=== PATIENT | male | born 1935 | race Caucasian/White ===

== ENCOUNTER 2021-05-14 11:26 | Inpatient (IN) | payer OTHER, MEDICARE ==
[~2021-05-14] VITALS: Ht 170.2 cm; Wt 83.6 kg
[2021-05-14 11:27] VITALS: BP 119/66
[2021-05-14 12:03] LABS: ABSOLUTE NEUTROPHILS 4.1 thou/uL (1.4-8.2); BASOPHILS 0.4 % (0.0-2.0); HEMATOCRIT 33.5 % (42.0-52.0); HEMOGLOBIN 10.9 gm/dL (14.0-18.0); LYMPHOCYTES 11.9 % (24.0-44.0); MCH 29.9 pg (26.0-34.0); MCHC 32.6 g/dL (28.0-37.0); MCV 91.8 fL (80.0-100.0); MONOCYTES 7.8 % (1.0-8.0); PLATELET COUNT 115 thou/uL (150-400); POLYS 76.9 % (36.0-66.0); RBC 3.65 mil/uL (4.50-6.00); WBC 5.4 thou/uL (4.0-11.0)
[2021-05-14] MEDS ORDERED: LIPITOR 20 MG T20 M1 PO (12:27)
[2021-05-14] MEDS ORDERED: COREG12.5 MG PO (12:27)
[2021-05-14] MEDS ORDERED: DUTASTERIDE0.5 MG PO (12:28)
[2021-05-14] MEDS ORDERED: NORVASC5 MG PO (12:28)
[2021-05-14] MEDS ORDERED: LEVOTHYROXINE88 MCG PO (12:28)
[2021-05-14] MEDS ORDERED: AVAPRO 150 MG150 MG PO (12:28)
[2021-05-14] MEDS ORDERED: TORSEMIDE10 MG PO (12:29)
[2021-05-14] MEDS ORDERED: LEXAPRO5 MG PO (12:29)
[2021-05-14 12:37] LABS: CALCIUM 9.1 mg/dL (8.5-10.1)
[2021-05-14 12:39] LABS: POTASSIUM 5.1 mmol/L (3.5-5.1)
[2021-05-14 12:48] LABS: ALBUMIN 3.1 g/dL (3.4-5.0); TOTAL BILIRUBIN 0.7 mg/dL (0.2-1.0); TOTAL PROTEIN 6.8 g/dL (6.4-8.2)
[2021-05-14 14:20] VITALS: BP 138/78
--- NOTE | 2021-05-14 15:47 | EKG ---
[place] [address] [facility] [place] [address] ELECTROCARDIOGRAM REPORT Name: JUAN REID Room #: 170-5 ADM IN M.R.#: [id number] Admission: 05/14/21 Attend Phys: Jackson Cardoza MD Discharge: Date of : 37 Report #: [id number] [facility] ED Test Date: 2021-05-14 Test Time: 11:33:12 Pat Name: JUAN REID Department: Room: 170 Gender: M Brake Press Operator: johann : 1935 Requested By: April Rahman Order Number: [id number] MD: Jaime Dent Measurements Intervals [place] Rate: 60 P: 0 NH: 80 QRS: -72 QRSD: 139 T: 73 QT: 451 QTc: 451 Interpretive Statements AFIB Short NH interval IVCD, consider atypical RBBB Left ventricular hypertrophy Compared to ECG 01/13/2007 20:07:27 Short NH interval now present Left ventricular hypertrophy now present Electronically Signed On 05-14-2021 15:47:09 CDT by Jaime Dent [email or web address] <ELECTRONICALLY SIGNED> By: Jaime Dent MD, [facility] 05/14/21 1547 [id number] 113 Jaime Dent MD, FAC /EPI
--- NOTE | 2021-05-14 16:15 | 2DMMODE ---
[facility] [place] [address] [place] [address] 2 D/M-MODE ECHOCARDIOGRAM Name: JUAN REID Room #: 170-5 ADM IN .R.#: [id number] Admission: 05/14/21 Attend Phys: Jackson Cardoza MD Discharge: Date of : 37 Report #: [id number] THIS REPORT FOR: cc: Prabhakar Raymundo MD, Steven E. MD Santiago, Patrick MD [facility] ~ APPROVED REPORT Study performed: 05/14/2021 15:04:02 EXAM: Comprehensive 2D, Doppler, and color-flow Echocardiogram Patient Location: ER Status: routine BSA: 1.87 HR: 59 bpm BP: 128/71 mmHg Rhythm: Pacemaker Other Information Study Quality: Fair/poor windows Technically limited study due to heavy lung interference. Indications Short of breath, elevated troponin. Afib/PPM. HTN. 2D Dimensions RVDd: 48.82 mm IVSd: 10.52 (7-11mm) LVOT Diam: 22.64 (18-24mm) LVDd: 44.35 mm PWd: 9.64 (7-11mm) LVDs: 33.06 (25-40mm) Left Atrium: 51.73 (27-40mm) Aortic Root: 36.95 mm Volumes Left Atrial Volume (Systole) Single Plane 4CH: 81.14 mL Single Plane 2CH: 93.16 mL LA ESV Index: 51.00 mL/m2 Aortic Valve AoV Peak Carlos Eduardo.: 2.00 m/s [facility] [address] [place] [address] 2 D/M-MODE ECHOCARDIOGRAM Name: JUAN REID Room #: 170-5 ADM IN [facility]#: [id number] Admission: 05/14/21 Attend Phys: Jackson Cardoza MD Discharge: Date of : 37 Report #: [id number] Peak Gr.: 16.07 mmHg LVOT Max P.62 mmHg AO Mean Gr.: 8.53 mmHg AO V2 Mean: 1.33 m/s LVOT Max V: 0.64 m/s AO V2 VTI: 36.22 cm RIYA Vmax: 1.28 cm2 Mitral Valve MV Decel. Time: 188.42 ms MV E Max Carlos Eduardo.: 0.84 m/s Tricuspid Valve TR Peak Carlos Eduardo.: 3.56 m/s TR Peak Gr.: 51.00 mmHg Left Ventricle The left ventricle is normal size. Regional wall motion abnormalities are noted. There is normal left ventricular wall thickness. Left ventricular systolic function is moderately decreased. LVEF is 35-40%. This study is not technically sufficient to allow evaluation of the LV diastolic function. Right Ventricle Right ventricle is dilated. The right ventricular systolic function is normal. Atria Severe biatrial enlargement. Aortic Valve Aortic valve is calcified. No aortic regurgitation is present. Mild to moderate aortic stenosis. (RIYA by continuity equation is 1.3cm2). Mitral Valve The mitral valve is normal in structure. Moderate mitral regurgitation. Tricuspid Valve The tricuspid valve is normal in structure. Moderate tricuspid regurgitation. Estiamted PAP is 50mmHg plus the RAP. Pulmonic Valve Pulmonic valve is not well visualized. Great Vessels The aortic root is normal in size. Ascending aorta is not well [facility] [address] [place] [address] 2 D/M-MODE ECHOCARDIOGRAM Name: JUAN REID Room #: [address] [place] [address] [place] [facility]#: [id number] Admission: 05/14/21 Attend Phys: Jackson Cardoza MD Discharge: Date of : 37 Report #: [id number] visualized. IVC is not well visualized. Pericardium There is no pericardial effusion. <Conclusion> Difficult study Normal left ventricle size/wall thickness Ejection fraction 35-40%, moderate anteroseptal hypokinesis Right ventricle moderately dilated, normal contractility Severe biatrial enlargement Mildly calcified aortic valve Mild aortic valve stenosis aortic valve area estimated 1.3 cm and a mean gradient of 8 mmHg Mild to moderate eccentric mitral valve insufficiency Moderate tricuspid valve insufficiency Pulmonary systolic pressure estimated 50 mmHg Normal aortic root size No pericardial effusion <ELECTRONICALLY SIGNED> By: Jaime Dent MD, [facility] 05/14/21 [id number] Jaime Dent MD, FACC /INF
[2021-05-14 19:29] VITALS: BP 135/63
[2021-05-14 20:33] VITALS: BP 149/80
[2021-05-14 23:48] VITALS: BP 142/86
--- NOTE | 2021-05-15 03:07 | NUR ---
PT ADMITTED TO THE UNIT YESTERDAY WITH C/O FALL AND LT ELBOW FRACTURE .PT DIAGNOSED WITH PNEUMONIA AND SOA.PT HAS TEARS ON BUE AND BRUISE ON LT KNEE AND REDNESS OF BOTTOM.PT IS A/O X3.PT CONFUSED.PT HAS A PACEMAKER.IV ACCESS ON LFA SL.PT IS ON ROOM AIR.WILL CONTINUE TO MONITOR PE POC
[2021-05-15 04:38] VITALS: BP 151/83
[2021-05-15 05:10] LABS: HEMATOCRIT 32.5 % (42.0-52.0); HEMOGLOBIN 10.7 gm/dL (14.0-18.0); MCH 30.2 pg (26.0-34.0); MCV 91.5 fL (80.0-100.0); RBC 3.55 mil/uL (4.50-6.00); RDW 15.1 % (10.5-14.5); WBC 5.2 thou/uL (4.0-11.0)
[2021-05-15 05:12] LABS: CALCIUM 8.6 mg/dL (8.5-10.1); POTASSIUM 4.9 mmol/L (3.5-5.1)
[2021-05-15 08:00] VITALS: BP 153/93
[2021-05-15 11:30] VITALS: BP 124/72
--- NOTE | 2021-05-15 15:18 | NUR ---
Case opened to follow for dc planning. CM role introduced to pt at bedside and his Pat via phone. Pt is on bedrest this afternoon after IVC filter placement for blood clot. The pt is hopi and A&ox3. He is a little confused at times but able to tell me he was indep with a rwalker prior to admission and lives at [facility] indep apt[facility]. It is not like home but he states they like it ok. He had a fall recently and fx his lt elbow. His reports no wt bearing restrictions unless painful. He has no steps and they have housekeeping and meal support. Neither of them drive anymore and they rely on transport per the community. The pt has been to [facility] acute rehab recently and then dc'd home with outpt therapy per [facility] [phone] (Taran is his PT). He was recently dc'd from these services as well as he had used his visits for the calendar year. Taran indicates he can re eval in [facility]. Pt's spouse indicates they are familiar with snf as he was a [facility] a few years ago. Both are hoping he can return home and they would be open to having [facility] again if possible or [facility]. They would consider SNF if recommended by the care team. PT/OT evals are pending as pt has been on bedrest d/t his procedure. No weekend dc anticipated unless pt cleared by therapy and cardiology. Ptis also being treated for pneumonia. The pt has had his covid vaccines x2. Will reassess for possible HH or SNF referral at [place].
[2021-05-15 16:30] VITALS: BP 120/72
--- NOTE | 2021-05-15 16:51 | NUR ---
TOOK OVER CARE OF PATIENT AT 0700. PT CONFUSED AT TIME; ONLY ALERT TO SELF. CARDIOLOGY TO HAVE IVC PROCEDURE TODAY. PATIENT REMAINED ON BED REST FOR 3 HOURS; GROIN SITE SOFT, NO HEMATOMA NOTED. PATIENT DENIES PAIN. SOA NOTED WHEN PATIENT EXERTS HIMSELF OR AMBULATES. PATIENT WEARING 1.5 L O2 VIA NASAL CANNULA; SPO2 94-99%. PATIENT CURRENTLY SITTING IN CHAIR RESTING COMFORTABLY. DENIES ANY NEEDS AT THIS TIME. FALL PRECAUTIONS IN PLACE, CHAIR ALARM SET, AND CALL LIGHT WITHIN REACH.
[2021-05-15 20:06] VITALS: BP 137/79
[2021-05-15 21:10] VITALS: BP 137/79
[2021-05-16 06:07] VITALS: BP 150/75
[2021-05-16 07:26] VITALS: BP 127/55
[2021-05-16 15:29] VITALS: BP 113/81
--- NOTE | 2021-05-16 18:34 | NUR ---
AT THE BEGINNING OF THE SHIFT THE PT WAS VERY AGITATED HITTING THE SIDE OF THE BED YELLING HE IS MISSING HIS APPT WITH HIS ARMATURE WINDER. SPOKE WITH SPOUSE LATER IN THE SHIFT AND SHE STATED IT IS NORMAL FOR HIM TO WAKE UP AGITATED. AFTER PT TOOK A NAP THIS AM HE WAS IN A BETTER MORE COOPERATIVE MOOD, STILL APPEARED TO HAVE SOME CONFUSION. SPOUSE STATED HIS MENTATION IS BASELINE. NO BM TODAY.
[2021-05-16 19:42] VITALS: BP 112/62
[2021-05-17 03:46] VITALS: BP 112/77
--- NOTE | 2021-05-17 04:39 | NUR ---
RECEIVED PATIENT AT 1900H.PATIENT IS ORIENTED TO SELF, SOMETIMES CONFUSED.ON ROOM AIR BREATHING SPONTANEOUSLY.NOT IN PAIN OR DISTRESS.REORIENTATION DONE WHEN PATIENT GOTS CONFUSED.ALL NEEDS ATTENDED.TO CONTINOUSLY MONITOR.
[2021-05-17 07:34] VITALS: BP 117/60
[2021-05-17 11:35] VITALS: BP 119/66
--- NOTE | 2021-05-17 17:46 | NUR ---
PT STARTED OFF THE SHIFT VERY AGITATED YELLING AT THE STAFF. PT WAS UNHAPPY WITH HIS BREAKFAST, ALSO UNHAPPY WITH NOT BEING ABLE TO WALK. ATTEMPTS WERE MADE TO CALM DOWN THE PT WITHOUT SUCCESS. PT WAS GIVING PRN HALDOL, AFTERWHICH PT BECAME CALMER. PT DID NOT HAVE A BM THIS SHIFT. PT WAS INCONTINENT OF URINE 2 TIMES. PT HAD FAMILY AT THE BEDSIDE THIS AFTERNOON.
[2021-05-17 20:00] VITALS: BP 136/80
[2021-05-18 04:00] VITALS: BP 115/66
--- NOTE | 2021-05-18 04:00 | NUR ---
PT IS ALERT AND ORIENTED X2 WITH FORGETFULL AND CONFUSION. LUNGS ARE CLEAR. ON ROOM AIR. ABDOMEN IS SOFT NONTENDER WITH BOWEL SOUNDS ACTIVE. NO EDEMA NOTED. BED ALARM IS ON WITH FOR FALL SAFETY. ASKING WHAT THE ROUTINE IS AND WHEN HIS MEDS ARE DUE. EXPLAIN PLAN OF CARE FOR THE EVENING AND MEDS GIVEN AT TIME OF ADMINISTRATION PER CARE. DENIES ANY PAIN. CALL LIGHT WITHIN REACH
[2021-05-18 07:50] VITALS: BP 146/92
[2021-05-18 09:29] LABS: HEMATOCRIT 35.5 % (42.0-52.0); HEMOGLOBIN 11.6 gm/dL (14.0-18.0); MCH 29.9 pg (26.0-34.0); MCHC 32.6 g/dL (28.0-37.0); RBC 3.86 mil/uL (4.50-6.00); RDW 14.6 % (10.5-14.5); WBC 4.2 thou/uL (4.0-11.0)
[2021-05-18 09:38] LABS: CALCIUM 8.9 mg/dL (8.5-10.1); CREATININE 1.8 mg/dL (0.7-1.3); POTASSIUM 4.3 mmol/L (3.5-5.1)
[2021-05-18 11:20] VITALS: BP 124/80
--- NOTE | 2021-05-18 13:43 | NUR ---
TOOK OVER CARE FOR THIS PATIENT AT 0700. PATIENT RESTING IN BED BUT IS FRUSTRATED, AGITATED, AND YELLING OUT ABOUT GOING HOME. PATIENT ALERT AND ORIENTATED TO SELF ONLY. PATIENT KNOWS HE IS IN THE HOSPITAL BUT NOT WHICH ONE. REORIENTATED PATIENT AND USED THERAPEUTIC COMMUNICATION; PATIENT MORE CALM AT THIS TIME RESTING IN HIS CHAIR. CALLED PATIENT'S , ROBEL, SHE STATED SHE WILL BE VISITING PATIENT AT [phone] TODAY. FALL PRECAUTIONS IN PLACE, CALL LIGHT AND PERSONAL ITEMS WITHIN REACH. WILL CONTINUE TO MONITOR.
[2021-05-18 15:35] VITALS: BP 126/76
--- NOTE | 2021-05-18 16:33 | NUR ---
Patient with need for post acute care. Sp with and son. Son at bedside. Gave list of skilled facilities. [facility]. Faxed referral for review.
[2021-05-18 19:21] VITALS: BP 116/69
[2021-05-19 03:58] VITALS: BP 118/79
--- NOTE | 2021-05-19 04:53 | NUR ---
PT IS ALERT AND ORIENTED X4. LUNGS ARE CLEAR TO DIMINISHED. ON ROOM AIR. V-PACED ON THE ELECTRIC SPOT WELDER. ABDOMEN IS SOFT BOWEL SOUNDS ACTIVE. WATCHED [employer] GAME LAST NIGHT. DENIES ANY PAIN AT THIS TIME. NO EDEMA NOTED. ONGOING NURSING CARE AT THIS TIME. SLEPT THROUGH THE NIGHT CALL LIGHT WITHIN REACH IF NEEDS ASSITANCE PER NURSING
[2021-05-19 07:30] VITALS: BP 1331/83
[2021-05-19 08:06] VITALS: BP 131/85
--- NOTE | 2021-05-19 11:11 | NUR ---
TOOK OVER CARE OF PATIENT AT 0700. PATIENT ASLEEP DURING REPORT. ASSISTED PATIENT TO AMBULATE TO CHAIR; PATIENT NOW RESTING IN CHAIR. PATIENT CONTINUES TO BE FRUSTRATED, IRRITABLE, AND YELLING OUT AT STAFF. USED THERAPEUTIC COMMUNICATION WITH PATIENT. DISCUSSED CASE WITH CASE MANAGEMENT AND HOSPITALIST. PLAN TO GO TO SNF FACILITY WHEN DISCHARGED AND WAITING UPON APPROVAL. FALL PRECAUTIONS IN PLACE, CALL LIGHT WITHIN REACH, AND ALARMS ACTIVATED.
[2021-05-19] MEDS ORDERED: LIPITOR40 MG PO (13:00)
[2021-05-19] MEDS ORDERED: ASA81BEC PO (13:10)
[2021-05-19] MEDS ORDERED: RISPERDAL0.5 MG PO ×2 (13:10→13:13)
[2021-05-19] MEDS ORDERED: COZAAR 25 MG TA25 M1 PO (13:10)
--- NOTE | 2021-05-19 14:23 | NUR ---
report given to nurse Palomino at [facility]. orders sent to nursing facility. transported by wheelchair van. personal belongings with patient.
--- NOTE | 2021-05-19 14:29 | NUR ---
spoke with [facility] this am, they did not rec referral. Faxed again and sp with admissions. They are accepting of patient. Updated phys and Rn. Chart copied. Orders faxed. angelica watkins from [facility] for 1400. Notified patient, and son Jackson. no further needs
== END 2021-05-19 14:32 | DRG 175 ==
LOC: ER 11:26 → EROBS 14:11 → 2N 14:11
PROVIDERS: Emergency Medicine; Hospitalist; ADMIT Hospitalist; ATTEND Hospitalist
PROC: 06H03DZ Insertion of Intraluminal Device into Inferior Vena Cava, Percutaneous Approach (ICD-10-PCS; principal; 2021-05-15)
DX: I26.99 Other pulmonary embolism without acute cor pulmonale (principal); J18.9 Pneumonia, unspecified organism; I21.4 Non-ST elevation (NSTEMI) myocardial infarction; R65.11 Systemic inflammatory response syndrome (SIRS) of non-infectious origin with acute organ dysfunction; S42.402A Unspecified fracture of lower end of left humerus, initial encounter for closed fracture; N17.9 Acute kidney failure, unspecified; D68.59 Other primary thrombophilia; I50.22 Chronic systolic (congestive) heart failure; I42.9 Cardiomyopathy, unspecified; I13.0 Hypertensive heart and chronic kidney disease with heart failure and stage 1 through stage 4 chronic kidney disease, or unspecified chronic kidney disease; I82.4Z3 Acute embolism and thrombosis of unspecified deep veins of distal lower extremity, bilateral; R77.8 Other specified abnormalities of plasma proteins; Z20.822 Contact with and (suspected) exposure to COVID-19; E78.00 Pure hypercholesterolemia, unspecified; F41.9 Anxiety disorder, unspecified; I48.91 Unspecified atrial fibrillation; E03.9 Hypothyroidism, unspecified; N18.9 Chronic kidney disease, unspecified; F32.9 Major depressive disorder, single episode, unspecified; E78.5 Hyperlipidemia, unspecified; S52.122A Displaced fracture of head of left radius, initial encounter for closed fracture; W18.39XA Other fall on same level, initial encounter; Y93.89 Activity, other specified; Y92.89 Other specified places as the place of occurrence of the external cause; Y99.8 Other external cause status; Z86.718 Personal history of other venous thrombosis and embolism; Z90.5 Acquired absence of kidney; Z85.528 Personal history of other malignant neoplasm of kidney; Z88.1 Allergy status to other antibiotic agents; Z88.0 Allergy status to penicillin; Z88.8 Allergy status to other drugs, medicaments and biological substances; Z95.0 Presence of cardiac pacemaker
CPT/HCPCS: 10081